=== PATIENT | female | born 1980 | race Caucasian/White ===

== ENCOUNTER → 2017-06-30 | Emergency (ER) | payer OTHER ==
[~2017-06-30] VITALS: Ht 170.2 cm; Wt 64.4 kg
== END | disposition home or self-care (01) ==
LOC: ER 22:07
DX: L73.8 Other specified follicular disorders (principal); R51 Headache

== ENCOUNTER 2017-07-25 12:46 | Emergency (ER) | payer OTHER ==
[~2017-07-25] VITALS: Ht 170.2 cm; Wt 63.5 kg
== END 2017-07-25 21:15 | disposition home or self-care (01) ==
LOC: ER 12:46
DX: J06.9 Acute upper respiratory infection, unspecified (principal); J32.8 Other chronic sinusitis